=== PATIENT | male | born 1990 | race Caucasian/White ===

== ENCOUNTER → 2016-12-12 | Outpatient (CLI) | payer OTHER ==
[~2016-12-12] MED LIST: AMOXICILLIN500 MG PO; ANTIBIOTIC O500 U/GM TP; AUGMENTIN 875875 MG PO; CEPHALEXIN500 M1 PO; Carafate1 GM/10 ML NG; Carafate1 GM/10 ML PO; Motrin,Rufen800 MG PO; NAPROSYN500 MG PO; NORCO 5-325 TA1 EACH PO; NYSTATIN100000 U/M PO; PROTONIX40 MG PO; VICODIN 5/500 505 MG PO
== END | disposition home or self-care (01) ==
LOC: RESCLI 00:44
DX: F32.9 Major depressive disorder, single episode, unspecified (principal); T14.91 Suicide attempt; Q31.8 Other congenital malformations of larynx